=== PATIENT | female | born 1990 | race African-American/Black ===

== ENCOUNTER 2016-08-21 10:05 | Observation (INO) | payer MEDICAID ==
[~2016-08-21] VITALS: Ht 167.6 cm; Wt 65.0 kg
[~2016-08-21 10:05] MED LIST: PENI250T59 PO; PRENCAP6 PO
[2016-08-21 10:08] VITALS: BP 122/80; PULSE 60; RESP 20; RESP 22; TEMP 98.7; O2SAT 99
[2016-08-21] MEDS ORDERED: SODIUM CHLORIDE 0.9% FLUSH 10 ML FLUSH IVF PRN (10:30)
[2016-08-21 10:35] VITALS: BP_SYST 107; BP_SYST 112; BP_DIAS 74; BP_DIAS 76; PULSE 61; RESP 18; O2SAT 100
--- NOTE | 2016-08-21 10:46 | RADRPT ---
EXAM DATE/TIME: 08/21/2016 10:13 [place] COMPARISON: No previous studies available for comparison. INDICATIONS : Patient states chest pains. MEDICAL HISTORY : Asthma SURGICAL HISTORY : None. ENCOUNTER: Initial ACUITY: 1 day PAIN SCORE: 8/10 LOCATION: Bilateral chest FINDINGS: Portable AP view of the chest demonstrates a normal-sized cardiac silhouette. No effusion, consolidat ion, or pneumothorax is visualized. The bones and soft tissues demonstrate no acute abnormality. CONCLUSION: No acute cardiopulmonary abnormality is identified. Senthil Serna MD on August 21, 2016 at 10:44 Board Certified Radiologist. This report was verified electronically.
[2016-08-21 10:47] LABS: BASOPHIL % 0.3 % (0.0-2.0); EOSINOPHIL # 0.2 TH/MM3 (0-0.4); EOSINOPHIL % 3.6 % (0.0-4.0); HEMATOCRIT 36.6 % (35.0-46.0); HEMO FLAGS DIFF FINAL; LYMPH % 27.8 % (9.0-44.0); LYMPHOCYTE # 1.9 TH/MM3 (1.0-4.8); MEAN CELL VOLUME 85.7 FL (80.0-100.0); MEAN CORPUSCULAR HEMOGLOBIN 28.4 PG (27.0-34.0); MEAN CORPUSCULAR HGB CONC 33.1 % (32.0-36.0); MONO % 8.6 % (0.0-8.0); NEUT % 59.7 % (16.0-70.0); PLATELET COUNT 274 TH/MM3 (150-450); RED BLOOD COUNT 4.27 MIL/MM3 (4.00-5.30); RED CELL DISTRIBUTION WIDTH 12.9 % (11.6-17.2); WHITE BLOOD COUNT 6.7 TH/MM3 (4.0-11.0)
[2016-08-21 10:56] LABS: APTT (PATIENT) 26.1 SEC (24.3-30.1); PROTHROMBIN TIME - PATIENT 10.6 SEC (9.8-11.6)
[2016-08-21 11:05] LABS: ANION GAP 8 MEQ/L (5-15); BICARBONATE 24.5 MEQ/L (21.0-32.0); BLOOD UREA NITROGEN 12 MG/DL (7-18); CHLORIDE 106 MEQ/L (98-107); GLOMERULAR FILTRATION RATE 89 ML/MIN (>89); MAGNESIUM 2.1 MG/DL (1.5-2.5); SODIUM (NA) 138 MEQ/L (136-145)
[2016-08-21 11:15] LABS: CREATINE KINASE 99 U/L (26-192)
[2016-08-21] MEDS ORDERED: ACETAMINOPHEN 500 MG CPLT PO PRN (13:45)
[2016-08-21] MEDS ORDERED: SODIUM CHLORIDE 0.9% FLUSH 5 ML FLUSH IVF PRN (13:45)
[2016-08-21] MEDS ORDERED: ONDANSETRON HCL 4 MG/2 ML VIAL IV PRN (13:45)
[2016-08-21] MEDS ORDERED: ACETAMINOPHEN/HYDROcodone 325 MG/7.5 MG TAB PO PRN (13:45)
--- NOTE | 2016-08-21 13:46 | HHI.HP ---
HPI Primary Care Physician Unknown Chief Complaint Chest pain History of Present Illness This is a 25-year-old female that presents to ED via [facility] with a complaint of chest discomfort. She had just arrived to work. She was not working at when she developed a central chest pain. She cannot describe what it felt like other the fact that it was severe. She states it was an 8 out of 10. EVAC gave her aspirin and nitroglycerin spray which she states helped with the discomfort almost immediately. She believes the symptoms lasted about an hour. She had no shortness breath, nausea, or diaphoresis. 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 She felt like it was a pulled muscle in her chest. Denies recent illness. Denies fevers or chills. Denies being . Denies calf pain or swelling. Denies recent travel or sedentary lifestyle. Denies history of CAD. Is not aware of anyone in her family having CAD. The patient had initially been transported via [facility] under a STEMI alert however that was canceled after the ER physician reviewed EKG and examine the patient. Review of Systems General: Patient denies fevers, chills recent, and recent travel HEENT: Patient denies headache, sore throat, difficulty swallowing. Cardiovascular: Has the chest discomfort as mentioned above. Denies sensation of heart beating rapidly or irregularly. No syncope. Denies diaphoresis. Respiratory: Denies shortness of breath or inspirational chest discomfort. Denies coughing wheezing or hemoptysis. GI: Patient denies nausea, vomiting, diarrhea, abdominal pain, bloody stools. Musculoskeletal: Patient denies joint pain or edema. Denies calf pain or edema. Neurovascular: Patient denies numbness, tingling, weakness in extremities. Denies headache. Endocrine: Denies polyuria and polydipsia. Hematologic: Denies easy bruising. Skin: Denies rash or itching. Past Family Social History Allergies: Coded Allergies: No Known Allergies (Verified , 12/10/15) Past Medical History Denies hypertension, hyperlipidemia, diabetes, and CAD. Past Surgical History Denies surgeries. Reported Medications Reported Meds & Active Scripts Active Active Ordered Medications Current Medications Medications (Trade) Dose Ordered Sig/Olga Route Start Time Stop Time Status Last Admin (NS Flush) 2 ml UNSCH PRN IVF 08/21/16 10:30 (NS Flush) 2 ml UNSCH PRN IVF 08/21/16 13:45 UNV (NS Flush) 2 ml BID IVF 08/21/16 21:00 UNV (Tylenol) 500 mg Q4H PRN PO 08/21/16 13:45 UNV (Marion 7.5-325 Mg) 1 tab Q4H PRN PO 08/21/16 13:45 UNV (Zofran Inj) 4 mg Q6H PRN IV 08/21/16 13:45 UNV (Aspirin) 325 mg DAILY PO 08/22/16 09:00 UNV Family History Denies family history of CAD. Social History Patient does not smoke cigarettes, drink alcohol, or use illicit drugs. Physical Exam Vital Signs Vital Signs Date Time Temp Pulse Resp B/P Pulse Ox O2 Delivery O2 Flow Rate FiO2 08/21/16 10:37 99 Room Air 08/21/16 10:35 61 18 107/76 100 Room Air 112/74 08/21/16 10:17 Room Air 08/21/16 10:17 Room Air 08/21/16 10:08 98.7 60 20 122/80 99 Physical Exam GENERAL: This is a well-nourished, well-developed patient, in no apparent distress. Patient speaks in clear complete sentences. Patient is pleasant. She was examined with a female nurse sample processor at the bedside. HEENT: Head is atraumatic and normocephalic. Neck is supple without lymphadenopathy and trachea is midline. No JVD or carotid bruits. CARDIOVASCULAR: Regular rate and rhythm without murmurs, gallops, or rubs. RESPIRATORY: Clear to auscultation. Breath sounds equal bilaterally. No wheezes , rales, or rhonchi. Chest wall is nontender. No use of accessory muscles. GASTROINTESTINAL: Abdomen is nontender, nondistended. Abdomen soft. No obvious pulsatile mass or bruit. No CVA tenderness. Strong femoral pulses bilaterally. Normal bowel sounds in all quadrants. MUSCULOSKELETAL: Patient is moving upper and lower extremities freely. No calf tenderness or edema, no Homans sign. Strong pulses in upper and lower extremities. NEUROLOGICAL: Patient is alert and oriented. Cranial nerves 2-12 are grossly intact. No focal deficits and speech is clear. SKIN: No rash and turgor is normal. Laboratory Laboratory Tests Test 08/21/16 10:32 White Blood Count 6.7 Red Blood Count 4.27 Hemoglobin 12.1 Hematocrit 36.6 Mean Corpuscular Volume 85.7 Mean Corpuscular Hemoglobin 28.4 Mean Corpuscular Hemoglobin 33.1 Concent Red Cell Distribution Width 12.9 Platelet Count 274 Mean Platelet Volume 8.9 Neutrophils (%) (Auto) 59.7 Lymphocytes (%) (Auto) 27.8 Monocytes (%) (Auto) 8.6 Eosinophils (%) (Auto) 3.6 Basophils (%) (Auto) 0.3 Neutrophils # (Auto) 4.0 Lymphocytes # (Auto) 1.9 Monocytes # (Auto) 0.6 Eosinophils # (Auto) 0.2 Basophils # (Auto) 0.0 CBC Comment DIFF FINAL Differential Comment Prothrombin Time 10.6 Prothromb Time International 1.0 Ratio Activated Partial 26.1 Thromboplast Time Sodium Level 138 Potassium Level 4.0 Chloride Level 106 Carbon Dioxide Level 24.5 Anion Gap 8 Blood Urea Nitrogen 12 Creatinine 0.93 Estimat Glomerular Filtration 89 Rate Random Glucose 81 Calcium Level 9.0 Magnesium Level 2.1 Total Creatine Kinase 99 Troponin I LESS THAN 0.02 Result Diagram: 08/21/16 1032 08/21/16 1032 Imaging Last 24 hours Impressions Chest X-Ray 08/21/16 1016 Signed Impressions: Service Date/Time: Sunday, August 21, 2016 10:13 - CONCLUSION: No acute cardiopulmonary abnormality is identified. Senthil Serna MD Course Initial EKG has sinus rhythm and has elevations with pattern of early repolarization. Will review with Dr. Tank Hurtado. Assessment and Plan Assessment and Plan * Chest pain: Patient will continue to have serial cardiac enzymes and EKGs for ruling out purposes. She has no risk factors for CAD. She will be evaluated by Dr. Tank Hurtado of cardiology in the chest pain center at that time we'll determine further workup. Patient is stable at this time. She is agreeable to this plan. Jamie Martinez August 21, 2016 13:46
[2016-08-21 14:21] LABS: CREATINE KINASE 88 U/L (26-192)
--- NOTE | 2016-08-21 14:38 | HHI.DCPOC ---
Discharge Care Plan Diagnosis: (1) Chest pain, atypical Goals to Promote Your Health * To prevent worsening of your condition and complications * To maintain your health at the optimal level Directions to Meet Your Goals Take your medications as prescribed Follow your dietary instruction Follow activity as directed Keep your appointments as scheduled Take your immunizations and boosters as scheduled If your symptoms worsen call your PCP, if no PCP go to Urgent Care Center or Emergency Room Smoking is Dangerous to Your Health. Avoid second hand smoke Call the 24-hour hour crisis hotline for domestic abuse at Jamie Martinez August 21, 2016 14:38
[2016-08-21 14:48] VITALS: BP 117/69; PULSE 66; RESP 18; TEMP 98.1; O2SAT 99
[2016-08-21] MEDS ORDERED: SODIUM CHLORIDE 0.9% FLUSH 5 ML FLUSH IVF SCH (21:00)
--- NOTE | 2016-08-22 08:21 | EKG ---
Date Performed: 08/21/2016 Time Performed: 10:11:15 PTAGE: 25 years EKG: Sinus rhythm NORMAL ECG NO PREVIOUS TRACING DOCTOR: Mya Suarez Interpretating Date/Time 08/22/2016 08:20:29
--- NOTE | 2016-08-22 08:22 | EKG ---
Date Performed: 08/21/2016 Time Performed: 13:13:44 PTAGE: 25 years EKG: SINUS BRADYCARDIA ST ELEVATION, PROBABLY EARLY REPOLARIZATION NONSPECIFIC ST & T-WAVE ABNOR MALITY BORDERLINE ECG Since PREVIOUS TRACING , no significant change noted PREVIOUS TRACIN08/21/2016 10.11 DOCTOR: Mya Suarez Interpretating Date/Time 08/22/2016 08:21:01
[2016-08-22] MEDS ORDERED: ASPIRIN 325 MG TAB PO SCH (09:00)
--- NOTE | 2016-09-11 17:39 | PD ---
HPI Chief Complaint: Chest Pain Time Seen by Provider: 10:16 Travel History International Travel<30 days: No Contact w/Intl Traveler<30days: No Traveled to known affect area: No History of Present Illness HPI Patient was seen by me on 08/21 2016. 26-year-old female came to the emergency room with history of chest pain. She was brought in by EMS. Pain was sudden onset left-sided radiating to the left left arm. Workup was initiated prior to my arrival. Patient currently complains of chest pain still. [facility] Past Medical History Narrative Medical List of her past medical, surgical, social and family history as reviewed from the nursing note. Medical History: Denies Significant Hx Asthma: Yes Diminished Hearing: No Genitourinary: Yes (Chlamydia, kidney infection 05/17) Immunizations Current: Yes Migraines: Yes Tetanus Vaccination: Never Vaccinated Influenza Vaccination: Yes ?: Not Menopausal: No : 1 Para: 1 Miscarriage: 0 : 1 Past Surgical History Surgical History: No Previous Surgery Social History Alcohol Use: Yes (OCC) Tobacco Use: No Substance Use: No Allergies-Medications (Allergen,Severity, Reaction): Coded Allergies: No Known Allergies (Verified , 12/10/15) Comments No known drug allergies. Reported Meds & Prescriptions Reported Meds & Active Scripts Active Narrative Medication List of her home medications reviewed from the nursing note. Review of Systems Except as stated in HPI: all other systems reviewed are Neg Physical Exam Narrative GENERAL: Awake, alert, anxious, moderate distress SKIN: Focused skin assessment warm/dry. HEAD: Atraumatic. Normocephalic. EYES: Pupils equal and round. No scleral icterus. No injection or drainage. ENT: No nasal bleeding or discharge. Mucous membranes pink and moist. NECK: Trachea midline. No JVD. CARDIOVASCULAR: Regular rate and rhythm. No murmur appreciated. RESPIRATORY: No accessory muscle use. Clear to auscultation. Breath sounds equal bilaterally. GASTROINTESTINAL: Abdomen soft, non-tender, nondistended. Hepatic and splenic margins not palpable. MUSCULOSKELETAL: No obvious deformities. No clubbing. No cyanosis. No edema. NEUROLOGICAL: Awake and alert. No obvious cranial nerve deficits. Motor grossly within normal limits. Normal speech. PSYCHIATRIC: Appropriate mood and affect; insight and judgment normal. Data Data Orders Electrocardiogram (08/21/16 10:16) Basic Metabolic Panel (Bmp) (08/21/16 10:16) Ckmb (Isoenzyme) Profile (08/21/16 10:16) Complete Blood Count With Diff (08/21/16 10:16) Magnesium (Mg) (08/21/16 10:16) Prothrombin Time / Inr (Pt) (08/21/16 10:16) Act Partial Throm Time (Ptt) (08/21/16 10:16) Troponin I (08/21/16 10:16) Chest, Single Ap (08/21/16 10:16) Ecg Monitoring (08/21/16 10:16) Bilateral Bp Monitoring (08/21/16 10:16) Iv Access Insert/Monitor (08/21/16 10:16) Oximetry (08/21/16 10:16) Oxygen Administration (08/21/16 10:16) Sodium Chloride 0.9% Flush (Ns Flush) (08/21/16 10:30) Admit Order (Ed Use Only) (08/21/16 11:50) MDM Medical Decision Making Medical Screen Exam Complete: Yes Emergency Medical Condition: Yes Medical Record Reviewed: Yes Differential Diagnosis ACS, non-STEMI, nonspecific chest pain Narrative Course The test results are within normal limit. Patient will be admitted and chest pain center to be ruled out. Procedures EKG Prior to Arrival: Yes Diagnosis Primary Impression: Chest pain, atypical Admitting Information Admitting Physician Requests: Observation Patient Instructions: Heart Healthy Diet (GEN), Chest Wall Pain (GEN) Sharonda Ibrahim MD Sep 11, 2016 17:39
== END 2016-08-21 16:33 | disposition home or self-care (01) ==
LOC: NEPC 10:05 → NEDA 12:03 → NEPHCDU 13:22
PROVIDERS: ADMIT Internal Medicine Cardiovascular Disease; ATTEND Internal Medicine Cardiovascular Disease
DX: R07.89 Other chest pain (principal); J45.909 Unspecified asthma, uncomplicated; Z20.5 Contact with and (suspected) exposure to viral hepatitis
CPT/HCPCS: 36556; 71010; 80048; 82550; 83735; 84484; 84703; 85025; 85610; 85730; 93005; 99285; G0378

== ENCOUNTER 2017-01-24 03:36 | Emergency (ER) | payer MEDICAID ==
[~2017-01-24] VITALS: Ht 162.6 cm; Wt 65.0 kg
[2017-01-24 03:38] VITALS: BP 120/60; PULSE 70; RESP 16; TEMP 98.1; O2SAT 99
[2017-01-24] MEDS ORDERED: DEPO150I IM (03:57)
--- NOTE | 2017-01-24 06:06 | PD ---
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 She says the discharge is thick yellow without any foul smell. Patient says she is not sexually active. No history of STDs in the past. Vital signs otherwise stable. No history of pain or dysuria. Bedside urine was negative. COUNT INCLUDES THE [facility] Past Medical History Narrative Medical List of her past medical, surgical, social and family history is reviewed from the nursing note. Asthma: Yes Diminished Hearing: No Genitourinary: Yes Immunizations Current: Yes Migraines: Yes ?: Not Menopausal: No : 1 Para: 1 Miscarriage: 0 : 1 Social History Alcohol Use: Yes (OCC) Tobacco Use: No Substance Use: No Allergies-Medications (Allergen,Severity, Reaction): Coded Allergies: No Known Allergies (Verified , 01/24/17) Comments No known drug allergies. Reported Meds & Prescriptions Reported Meds & Active Scripts Active Flagyl (Metronidazole) 250 Mg Tab 250 Mg PO TID Reported Depo-Provera Inj (Medroxyprogesterone Inj) 150 Mg/Ml Inj 150 Mg IM Q90D Narrative Medication List of her home medications reviewed from the nursing note. Review of Systems Except as stated in HPI: all other systems reviewed are Neg Genitourinary: Positive: Discharge Physical Exam Narrative GENERAL: Awake, alert, no obvious distress SKIN: Focused skin assessment warm/dry. HEAD: Atraumatic. Normocephalic. EYES: Pupils equal and round. No scleral icterus. No injection or drainage. ENT: No nasal bleeding or discharge. Mucous membranes pink and moist. NECK: Trachea midline. No JVD. CARDIOVASCULAR: Regular rate and rhythm. No murmur appreciated. RESPIRATORY: No accessory muscle use. Clear to auscultation. Breath sounds equal bilaterally. GASTROINTESTINAL: Abdomen soft, non-tender, nondistended. Hepatic and splenic margins not palpable. MUSCULOSKELETAL: No obvious deformities. No clubbing. No cyanosis. No edema. : Thick yellowish discharge noticed from the cervix, no foul smell. Swabs were collected. No CMT or adnexal tenderness. External inspection was negative NEUROLOGICAL: Awake and alert. No obvious cranial nerve deficits. Motor grossly within normal limits. Normal speech. PSYCHIATRIC: Appropriate mood and affect; insight and judgment normal. Data Data Last Documented VS Orders Orders Gc And Chlamydia Pcr (01/24/17 05:44) Wet Prep Profile (01/24/17 05:44) Urinalysis - C+S If Indicated (01/24/17 05:44) Ed Urine Pregnancytest Poc (01/24/17 05:44) Metronidazole (Flagyl) (01/24/17 06:30) Ed Discharge Order (01/24/17 06:30) Labs Laboratory Tests Test 01/24/17 05:22 01/24/17 06:17 Clue Cells (Wet Prep) PRESENT Vaginal Trichomonas (Wet Prep) NONE SEEN Vaginal Yeast (Wet Prep) NONE SEEN Chlamydia trachomatis DNA (PCR) NOT DETECTED Neisseria gonorrhoeae DNA (PCR) NOT DETECTED Urine Color LIGHT-YELLOW Urine Turbidity CLEAR Urine pH 5.5 Urine Specific [place] 1.012 Urine Protein NEG mg/dL Urine Glucose (UA) NEG mg/dL Urine Ketones NEG mg/dL Urine Occult Blood NEG Urine Nitrite NEG Urine Bilirubin NEG Urine Urobilinogen LESS THAN 2.0 MG/DL Urine Leukocyte Esterase TRACE Urine RBC 1 /hpf Urine WBC 2 /hpf Urine Squamous Epithelial Cells 1 /hpf Urine Bacteria RARE /hpf Microscopic Urinalysis Comment CULT NOT INDICATED MDM Medical Decision Making Medical Screen Exam Complete: Yes Emergency Medical Condition: Yes Medical Record Reviewed: Yes Differential Diagnosis STD, BV, Trichomonas Narrative Course 6:32 AM with prep is positive for clue cells. Patient will be discharged home on prescription for Flagyl. I will give her dose of Flagyl here. Procedures EKG Prior to Arrival: No Diagnosis Primary Impression: Bacterial vaginosis Additional Impression: Vaginitis Qualified Codes: N76.0 - Acute vaginitis Referrals: Primary Care Physician Additional Instructions: Follow-up with your [employer]CH[employer]ICIAN specialist. Take the medication as per the prescription direction. Med/Other Pt SpecificInfo: Prescription(s) given Scripts Metronidazole (Flagyl) 250 Mg Tab 250 MG PO TID for Infection, #7 TAB 0 Refills Prov: Sharonda Ibrahim MD 01/24/17 Disposition: 01 DISCHARGE HOME Condition: Stable Sharonda Ibrahim MD Jan 24, 2017 06:06
[2017-01-24 06:22] VITALS: BP 118/67; PULSE 78; RESP 18; O2SAT 99
[2017-01-24] MEDS ORDERED: metroNIDAZOLE 250 MG TAB PO ONE (06:30)
[2017-01-24] MEDS ORDERED: METR250 PO (06:34)
[2017-01-24 06:48] LABS: BACTERIA, URINE RARE /hpf; BILIRUBIN, URINE NEG (NEG); BLOOD, URINE NEG (NEG); GLUCOSE,URINE NEG (NEG); KETONE, URINE NEG (NEG); NITRITE,URINE NEG (NEG); PH, URINE 5.5 (5.0-8.5); SQUAMOUS EPITHELIAL CELL URINE 1 /hpf (0-5); URINE COLOR LIGHT-YELLOW (YELLW/STRAW); URINE LEUKOCYTE ESTERASE TRACE (NEG)
== END 2017-01-24 06:56 | disposition home or self-care (01) ==
LOC: NEPE 03:36
DX: N76.0 Acute vaginitis (principal); B96.89 Other specified bacterial agents as the cause of diseases classified elsewhere; J45.909 Unspecified asthma, uncomplicated; Z79.899 Other long term (current) drug therapy
CPT/HCPCS: 81001; 84703; 87210; 87491; 87591; 99283

== ENCOUNTER 2017-02-14 19:58 | Emergency (ER) | payer MEDICAID ==
[~2017-02-14] VITALS: Ht 162.6 cm; Wt 62.0 kg
[~2017-02-14 19:58] MED LIST changes: +DEPO150I IM; +METR250 PO; -PENI250T59 PO; -PRENCAP6 PO
[2017-02-14 20:00] VITALS: BP 124/78; PULSE 72; RESP 16; TEMP 98.1; O2SAT 97
[2017-02-14] MEDS ORDERED: TUCKPAD5 TOPICAL (20:37)
[2017-02-14] MEDS ORDERED: MIRA3350 PO (20:37)
--- NOTE | 2017-02-14 20:38 | PD ---
HPI Chief Complaint: GI Complaint Time Seen by Provider: 20:28 Travel History International Travel<30 days: No Contact w/Intl Traveler<30days: No Traveled to known affect area: No History of Present Illness HPI after having a bm, patient developed rectal pain, and when she looked she noticed a "hemorrhoid had popped out). no bleeding, no n/v/d/abd pain PFSH Past Medical History Asthma: Yes Diminished Hearing: No Genitourinary: Yes Immunizations Current: Yes Migraines: Yes ?: Not LMP: n/a Menopausal: No : 1 Para: 1 Miscarriage: 0 : 1 Past Surgical History Surgical History: No Previous Surgery Social History Alcohol Use: No Tobacco Use: No Substance Use: No Allergies-Medications (Allergen,Severity, Reaction): Coded Allergies: No Known Allergies (Verified Adverse Reaction, Unknown, 02/14/17) Reported Meds & Prescriptions Reported Meds & Active Scripts Active Flagyl (Metronidazole) 250 Mg Tab 250 Mg PO TID Reported Depo-Provera Inj (Medroxyprogesterone Inj) 150 Mg/Ml Inj 150 Mg IM Q90D Review of Systems Except as stated in HPI: all other systems reviewed are Neg Gastrointestinal: Positive: Other (rectal pain) Physical Exam Narrative GENERAL: SKIN: Warm and dry. HEAD: Atraumatic. Normocephalic. EYES: Pupils equal and round. No scleral icterus. No injection or drainage. ENT: No nasal bleeding or discharge. Mucous membranes pink and moist. NECK: Trachea midline. No JVD. CARDIOVASCULAR: Regular rate and rhythm. RESPIRATORY: No accessory muscle use. Clear to auscultation. Breath sounds equal bilaterally. GASTROINTESTINAL: Abdomen soft, non-tender, nondistended. tech paul in assisting : nonthrombosed hemorrhoids noted, able to manually reduce successfully MUSCULOSKELETAL: Extremities without clubbing, cyanosis, or edema. No obvious deformities. NEUROLOGICAL: Awake and alert. No obvious cranial nerve deficits. Motor grossly within normal limits. Five out of 5 muscle strength in the arms and legs. Normal speech. PSYCHIATRIC: Appropriate mood and affect; insight and judgment normal. Data Data Last Documented VS Vital Signs Date Time Temp Pulse Resp B/P (MAP) Pulse Ox O2 Delivery O2 Flow Rate FiO2 02/14/17 20:00 98.1 72 16 124/78 (93) 97 Room Air MDM Medical Decision Making Medical Screen Exam Complete: Yes Emergency Medical Condition: Yes Medical Record Reviewed: Yes Differential Diagnosis thrombosed hemorrhoid v rectal prolapse v nonthrombosed hemorrhoid Narrative Course after examination and successful reduction pain was greatly reduced. Diagnosis Primary Impression: Hemorrhoids that prolapse with straining and require manual replacement back inside anal canal Patient Instructions: General Instructions, Hemorrhoids (ED) Scripts Polyethylene Glycol 3350 Powder (Miralax Powder) 17 Gm Powd 17 GM PO DAILY for Constipation, #1 CAN 0 Refills Mix and dissolve one measuring cap-ful (17 grams) in water or juice. Prov: Chance Jose MD 02/14/17 Witch Laura Topical (Tucks Medicated Topical) 50 % Pad 1 PAD TOPICAL Q4H Y for PAIN/INFLAMMATION, #1 CONTAINER 0 Refills Prov: Chance Jose MD 02/14/17 Disposition: 01 DISCHARGE HOME Condition: Stable Chance Jose MD Feb 14, 2017 20:38
== END 2017-02-14 21:02 | disposition home or self-care (01) ==
LOC: NEPD 19:58
DX: K64.2 Third degree hemorrhoids (principal); J45.909 Unspecified asthma, uncomplicated
CPT/HCPCS: 99283

== ENCOUNTER 2017-05-21 15:48 | Emergency (ER) | payer SELFPAY ==
[~2017-05-21 15:48] MED LIST changes: +MIRA3350 PO; +TUCKPAD5 TOPICAL
[2017-05-21 15:50] VITALS: BP 118/60; PULSE 82; RESP 16; TEMP 98.3; O2SAT 99
--- NOTE | 2017-05-21 16:06 | PD ---
HPI Chief Complaint: Skin Problem Time Seen by Provider: 16:03 Travel History International Travel<30 days: No Contact w/Intl Traveler<30days: No Traveled to known affect area: No History of Present Illness HPI This patient was examined in the presence of a female nurse. 26 her old female presents for evaluation of rash and vaginal discharge. She reports a pruritic rash on her torso for the past 4 days per the rash seems to spare the extremities. The rash is pruritic. She has not tried using any over-the- counter medication for symptom relief. Denies any new medications, creams, lotions, detergents, foods, clothing. In addition the patient is complaining of white vaginal discharge which has been ongoing for "a while" with associated discomfort when she has intercourse. She reports that she has one long-term partner. She has no other complaints at this time. PFSH Past Medical History Asthma: Yes Diminished Hearing: No Genitourinary: Yes Immunizations Current: Yes Migraines: Yes ?: Not Menopausal: No : 1 Para: 1 Miscarriage: 0 : 1 Social History Alcohol Use: No Tobacco Use: No Substance Use: No Allergies-Medications (Allergen,Severity, Reaction): Coded Allergies: No Known Allergies (Verified Adverse Reaction, Unknown, 05/21/17) Reported Meds & Prescriptions Reported Meds & Active Scripts Active Permethrin Topical 5% (Permethrin) 5% Cream 1 Applic TOPICAL ONCE Doxycycline Hyclate 100 Mg Cap 100 Mg PO BID Reported Depo-Provera Inj (Medroxyprogesterone Inj) 150 Mg/Ml Inj 150 Mg IM Q90D Review of Systems Except as stated in HPI: all other systems reviewed are Neg Physical Exam Narrative Examined in presence of a female nurse GENERAL: Well-nourished female in no acute distress SKIN: Warm and dry. Widespread papular rash in the torso. No rash on the extremities. HEAD: Atraumatic. Normocephalic. EYES: Pupils equal and round. No scleral icterus. No injection or drainage. ENT: No nasal bleeding or discharge. Mucous membranes pink and moist. NECK: Trachea midline. No JVD. CARDIOVASCULAR: Regular rate and rhythm. No murmur appreciated. RESPIRATORY: No accessory muscle use. Clear to auscultation. Breath sounds equal bilaterally. GASTROINTESTINAL: Abdomen soft, non-tender, nondistended. Hepatic and splenic margins not palpable. Pelvic examination: White count that she will discharge noted. There is some cervical motion tenderness. No adnexal tenderness. Data Data Last Documented VS Vital Signs Date Time Temp Pulse Resp B/P (MAP) Pulse Ox O2 Delivery O2 Flow Rate FiO2 05/21/17 15:50 98.3 82 16 118/60 (79) 99 Orders Orders Gc And Chlamydia Pcr (05/21/17 16:03) Wet Prep Profile (05/21/17 16:03) Ed Urine Pregnancytest Poc (05/21/17 16:03) Ceftriaxone Inj (Rocephin Inj) (05/21/17 17:00) Lidocaine 1% Inj (50 Ml) (Xylocaine 1% I (05/21/17 17:00) Ed Discharge Order (05/21/17 16:56) Labs Laboratory Tests Test 05/21/17 16:20 Clue Cells (Wet Prep) NONE SEEN Vaginal Trichomonas (Wet Prep) NONE SEEN Vaginal Yeast (Wet Prep) NONE SEEN MDM Medical Decision Making Medical Screen Exam Complete: Yes Emergency Medical Condition: Yes Medical Record Reviewed: Yes Differential Diagnosis Fixed drug eruption, pityriasis rosea, viral exanthem, scabies, contact dermatitis Narrative Course 26-year-old female with 4 days history of pruritic rash that seems to be primarily localized to the torso. On examination she has nonspecific papular rash. On pelvic examination she had white discharge with some cervical motion tenderness. Her wet prep is negative. The patient will be empirically treated for pelvic inflammatory disease with Rocephin, doxycycline. She will be given permethrin cream for her rash. Recommended follow-up with primary care physician. Diagnosis Primary Impression: Pelvic inflammatory disease Additional Impression: Pruritic rash Additional Instructions: Medication as prescribed. Benadryl for itching. Follow-up with primary care physician. Follow-up at the health department for further STD testing. Have all partners tested and treated for STDs at the health department. Use additional contraceptive methods when using antibiotics. Return for any emergent medical conditions. Med/Other Pt SpecificInfo: Prescription(s) given Scripts Permethrin Topical 5% (Permethrin Topical 5%) 5% Cream 1 APPLIC TOPICAL ONCE for Scabies, #1 TUBE 0 Refills Prov: Vadim Manrique MD 05/21/17 Doxycycline Hyclate (Doxycycline Hyclate) 100 Mg Cap 100 MG PO BID for Infection, #28 CAP 0 Refills Prov: Vadim Manrique MD 05/21/17 Disposition: 01 DISCHARGE HOME Condition: Stable Janak Lincoln May 21, 2017 16:06
[2017-05-21] MEDS ORDERED: DOXY100C PO (16:57)
[2017-05-21] MEDS ORDERED: PERM5CRE TOPICAL (16:57)
[2017-05-21] MEDS ORDERED: LIDOCAINE HCL 1% 50 ML VIAL IM ONE (17:00)
[2017-05-21] MEDS ORDERED: cefTRIAXone 250 MG VIAL IM ONE (17:00)
[2017-05-21] MEDS ORDERED: LIDOCAINE HCL 1% PF 30 ML VIAL INFIL ONE (17:15)
== END 2017-05-21 17:53 | disposition home or self-care (01) ==
LOC: NEPK 15:48
DX: N73.9 Female pelvic inflammatory disease, unspecified (principal); R21 Rash and other nonspecific skin eruption
CPT/HCPCS: 84703; 87210; 87491; 87591; 96372; 99284; J0696